=== PATIENT | female | born 1985 | race Caucasian/White ===

== ENCOUNTER 2016-03-15 04:01 | Emergency (ER) | payer BC ==
[~2016-03-15] VITALS: Ht 152.4 cm; Wt 84.5 kg
[~2016-03-15 04:01] MED LIST: CLEOCIN300 MG PO; PERCOCET 5/31 TABLET PO; ZOFRAN4 MG PO
[2016-03-15 04:43] LABS: EOSINOPHIL (%) 1.2 % (0-5); EOSINOPHIL COUNT 0.2 K/uL (0-0.3); HEMATOCRIT 38.9 % (36.0-46.0); IMMATURE GRANULOCYTE (%) 0.2 % (0.0-0.7); IMMATURE GRANULOCYTE COUNT 0.3 K/uL; LYMPHOCYTE COUNT 2.9 K/uL (1.0-2.8); MCH 28.6 PG (29.0-34.0); MCHC 34.2 G/DL (30.0-36.0); MCV 83.7 FL (83-99); MEAN PLAT.VOLUME 9.1 uM^3 (9.5-12.4); MONOCYTE (%) 6.9 % (3-12); MONOCYTE COUNT 0.9 K/uL (0-0.8); NEUTROPHIL (%) 68.6 % (45-76); NEUTROPHIL COUNT 8.6 K/uL (1.8-6.4); PLATELET COUNT 305 K/uL (156-360); RBC DIS.WIDTH-CV 12.9 % (11.8-14.6); RBC DIS.WIDTH-SD 38.5 % (39-53); RED BLOOD COUNT 4.65 M/uL (3.80-5.20); WHITE BLOOD COUNT 12.6 K/uL (4.1-10.2)
[2016-03-15 04:50] LABS: CHLORIDE 107 mEq/L (99-109); POTASSIUM 3.5 mEq/L (3.7-5.4); SODIUM 138 mEq/L (136-147)
[2016-03-15 04:52] LABS: GLUCOSE 127 mg/dL (70-99)
[2016-03-15 04:54] LABS: ANION GAP 10 MEQ/L (2-14)
[2016-03-15 04:56] LABS: GFR ESTIMATE (CALCULATED) > 59 mL/min/
[2016-03-15 04:57] LABS: UREA NITROGEN (BUN) 11 mg/dL (9-23)
[2016-03-15] MEDS ORDERED: PERCOCET 5/31 TABLET PO (06:06)
[2016-03-15] MEDS ORDERED: CLINDAMYCIN HC300 MG PO (06:06)
[2016-03-15 06:20] VITALS: BP 115/66
== END 2016-03-15 06:40 | disposition home or self-care (01) ==
LOC: EME 04:01
PROVIDERS: Emergency Medicine
DX: K61.1 Rectal abscess (principal)
CPT/HCPCS: 72193; 80048; 85025; 99281; 99285; J2405; J3010; J7030

== ENCOUNTER 2016-03-17 14:39 | Day surgery (SDC) | payer BC ==
[~2016-03-17] VITALS: Ht 152.4 cm; Wt 85.0 kg
[~2016-03-17 14:39] MED LIST changes: +CLINDAMYCIN HC300 MG PO
[2016-03-17 15:42] LABS: HEMATOCRIT 36.8 % (36.0-46.0); MCH 28.2 PG (29.0-34.0); MCHC 33.4 G/DL (30.0-36.0); MCV 84.4 FL (83-99); MEAN PLAT.VOLUME 8.9 uM^3 (9.5-12.4); PLATELET COUNT 294 K/uL (156-360); RBC DIS.WIDTH-CV 12.8 % (11.8-14.6); RBC DIS.WIDTH-SD 38.6 % (39-53); RED BLOOD COUNT 4.36 M/uL (3.80-5.20); WHITE BLOOD COUNT 15.4 K/uL (4.1-10.2)
[2016-03-17 15:54] LABS: CHLORIDE 107 mEq/L (99-109); POTASSIUM 3.5 mEq/L (3.7-5.4); SODIUM 140 mEq/L (136-147)
[2016-03-17 15:56] LABS: GLUCOSE 106 mg/dL (70-99)
[2016-03-17 15:57] LABS: ANION GAP 8 MEQ/L (2-14)
[2016-03-17 15:58] LABS: TOTAL BILIRUBIN 0.8 mg/dL (0.0-1.0)
[2016-03-17 15:59] LABS: ALKALINE PHOSPHATASE 163 IU/L (3-129)
[2016-03-17 16:00] LABS: GFR ESTIMATE (CALCULATED) > 59 mL/min/
[2016-03-17 16:01] LABS: UREA NITROGEN (BUN) 9 mg/dL (9-23)
[2016-03-17 21:20] LABS: QUANTITATIVE HCG < 4.0 MIU/ML
[2016-03-18 00:02] VITALS: BP 131/73
[2016-03-18 03:05] VITALS: BP 115/65
[2016-03-18 07:43] VITALS: BP 127/84
[2016-03-18] MEDS ORDERED: CIPRO500 MG PO (10:17)
[2016-03-18] MEDS ORDERED: PERCOCET 5/31 TABLET PO (10:17)
[2016-03-18] MEDS ORDERED: FLAGYL500 MG PO (10:17)
[2016-03-18 11:42] VITALS: BP 124/73
== END 2016-03-18 14:20 | disposition home or self-care (01) ==
LOC: EME 14:39 → RME 14:39 → SDC 21:37 → RME 21:37 → 2EAST 22:03
PROVIDERS: Surgery
PROC: 0D9P0ZZ Drainage of Rectum, Open Approach (ICD-10-PCS; principal; 2016-03-17)
DX: K61.1 Rectal abscess (principal); R01.1 Cardiac murmur, unspecified
CPT/HCPCS: 74177; 80053; 84702; 85027; 87070; 87075; 87205; 94640; 99281; 99285; G0378; J0690; J0744; J1100; J1335; J1885; J2175; J2250; J2270; J2405; J3010; S0030

== ENCOUNTER → 2017-11-01 | Outpatient (CLI) | payer BC ==
[~2017-11-01] MED LIST changes: +CIPRO500 MG PO; +FLAGYL500 MG PO
== END | disposition home or self-care (01) ==
LOC: RES 09:00
DX: J45.909 Unspecified asthma, uncomplicated (principal)
CPT/HCPCS: 94070; 94726; 94729